=== PATIENT | female | born 1955 | race Caucasian/White ===

== ENCOUNTER 2019-03-20 21:53 | Emergency (ER) | payer BC ==
--- NOTE | 2019-03-20 22:04 | Emergency Department Record ---
History of Present Illness - General Chief Complaint: Altered Mental Status Stated Complaint: CONFUSION Time Seen by Provider: 03/20/19 21:58 Source: EMS Mode of Arrival: EMS Limitations: Altered mental status - History of Present Illness Initial Comments: 63 yo female presents to ED for evaluation of confusion for the past 4-5 weeks per EMS, patient's significant other reported difficulty with walking and being off balance for several weeks as well. Patient denies health problems other than HTN, denies use of anticoagulation medications. Patient denies any recent trauma or injury. MD Complaint: Altered mental status, Confusion Onset/Timin -: Month(s) Severity: Moderate Consistency: Constant Associated Symptoms: Denies other symptoms - Agustina Coma Scale Eye Response: (4) Open spontaneously Motor Response: (6) Obeys commands Verbal Response: (4) Confused conversation Agustina Total: 14 - Related Data Home Medications Medication Instructions Recorded Confirmed Last Taken Irbesartan 150 mg PO DAILY 03/20/19 03/20/19 03/20/19 Tiotropium [place] [Spiriva] 18 mcg INH DAILY 03/20/19 03/20/19 03/20/19 Umeclidinium Brm/Vilanterol Tr 1 puff DAILY 03/20/19 03/20/19 03/20/19 [Anoro Ellipta 62.5-25 Mcg INH] Allergies Allergy/AdvReac Type Severity Reaction Status Date / Time erythromycin base Allergy FLU LIKE Verified 03/20/19 23:44 SYMPTOMS Review of Systems ROS unobtainable: Due to mental status Physical Exam - General General Appearance: Alert, Cooperative, Mild distress, Other (Patient belives it is December of 1999, oriented to name) Limitations: Altered mental status - Head Head exam: Atraumatic, Normocephalic, Normal inspection Head exam detail: negative: Abrasion, Contusion, Wilder's sign, General tenderness, Hematoma, Laceration - Eye Eye exam: Normal appearance, PERRL. negative: Conjunctival injection, Periorbital swelling, Periorbital tenderness, Scleral icterus - ENT Ear exam: negative: Auricular hematoma, Auricular trauma Nasal Exam: negative: Active bleeding, Discharge, Dried blood, Foreign body Mouth exam: negative: Drooling, Laceration, Muffled voice, Tongue elevation - Neck Neck exam: Normal inspection. negative: Meningismus, Tenderness - Respiratory Respiratory exam: Normal lung sounds bilaterally. negative: Rales, Respiratory distress, Rhonchi, Stridor - Cardiovascular Cardiovascular Exam: Regular rate, Normal rhythm, Normal heart sounds - GI/Abdominal GI/Abdominal exam: Soft. negative: Rebound, Rigid, Tenderness - Rectal Rectal exam: Deferred - exam: Deferred - Extremities Extremities exam: Normal inspection. negative: Pedal edema, Tenderness - Back Back exam: Denies: CVA tenderness (R), CVA tenderness (L) - Neurological Neurological exam: Alert, Other (delayed with responses) - Psychiatric Psychiatric exam: Flat affect - Skin Skin exam: Normal color. negative: Abrasion Type of lesion: negative: abrasion Course - Reevaluation(s) Reevaluation #1: 03/20/19 22:08 Accu check 139 on arrival EKG: NSR 92 Normal axis, normal intervals No acute ST-T wave changes Reevaluation #2: 03/20/19 23:03 CT Brain: No acute process Reevaluation #3: 03/20/19 23:17 Laboratory studies were reviewed and appear grossly unremarkable with the exception of the following: Na 111 Cl 73 Hgb 10.2 Will initiate gentle hydration via banana bag in NS, will initiate transfer at this time for ICU admission. Reevaluation #4: 03/20/19 23:44 Case was discussed with Dr. Torres, will accept transfer to ICU. Medical Decision Making - Lab Data Result diagrams: 03/20/19 22:00 03/20/19 22:00 Critical Care Time Critical Care Time: Yes Total Critical Care Time: 60 Critical Care Time: Diagnosis and treatment for hypokalemia, exclusion of hyperammonia, ICH, Sepsis, or alcohol-induced alteration in mental status. Frequent reassessments, updating of both the patient and family members. Initiation and coordination of care with [facility]. Treatment for early Wernicke's encephalopathy. Disposition Disposition: Transfer Clinical Impression: Hyponatremia syndrome Anemia Qualifiers: Anemia type: unspecified type Qualified Code(s): D64.9 - Anemia, unspecified Disposition: Acute Care Hospital Transfer Transfer To: [facility] Reason For Transfer: Symptomatic Hyponatremia Accepting Physician: Melissa Time Discussed w/Accepting Physician: 23:25 Condition: (3) Guarded Forms: Patient Portal Access Time of Disposition: 23:25 Quality - Quality Measures Quality Measures: N/A - Blood Pressure Screening Does Patient Have Any of the Following: Active Dx of HTN Blood Pressure Classification: Pre-Hypertensive BP Reading Systolic Measurement: 154 Diastolic Measurement: 83 Screening for High Blood Pressure: Patient Exclusion, Hx of HTN [[id number]]
[2019-03-20 22:23] LABS: ABSOLUTE NEUTROPHIL COUNT 10.52; BASO % 0.2 % (0-6); EOS % 0.2 % (0-6); HEMATOCRIT 28.2 % (35.0-47.0); HEMOGLOBIN 10.2 gm/dl (11.6-16.0); LYMPH % 6.7 % (16-45); MEAN CELL VOLUME 90.7 fl (81-97); MEAN CORPUSCULAR HGB CONC 36.2 g/dl (32-36); MEAN PLATELET VOLUME 7.6 fl (7.4-10.4); MONO % 5.3 % (0-9); PLATELET COUNT 510 K/uL (130-400); RED BLOOD COUNT 3.11 M/uL (3.80-5.40); RED CELL DISTRIBUTION WIDTH 11.9 % (11.5-14.5)
[2019-03-20 22:27] LABS: MEAN CORPUSCULAR HEMOGLOBIN 32.7 pg (27-33)
[2019-03-20 22:38] LABS: BLOOD UREA NITROGEN 10 mg/dL (8-23); EST GLOMERULAR FILTRATION RATE 60 mL/min
[2019-03-20 22:39] LABS: PROTHROMBIN TIME (PATIENT) 9.8 SECONDS (9.5-12.1); TOTAL PROTEIN 6.5 g/dL (6.6-8.7)
[2019-03-20 22:41] LABS: GLUCOSE,RANDOM 122 mg/dL (74-109)
[2019-03-20 22:43] LABS: ALBUMIN 4.3 g/dL (4.0-5.0); ALT/SGPT 18 U/L (<33); AST/SGOT 31 U/L (10.0-35.0); PLATELET ESTIMATE INCREASED (NORMAL)
[2019-03-20 22:44] LABS: ACETAMINOPHEN < 5.0 ug/mL (10.0-30.0); ALKALINE PHOSPHATASE 114 U/L (35-104); SALICYLATE < 0.3 mg/dL (2.8-20)
[2019-03-20 22:54] LABS: THYROID STIMULATING HORMONE 1.28 uIU/mL (0.270-4.20)
[2019-03-20] MEDS ORDERED: MVI, ADULT NO.4 WITH VIT K 10 ML, THIAMINE HCL IV 100 MG in 0.9 % SODIUM CHLORIDE 1000M... IV SCH ×3 (23:00)
[2019-03-20 23:12] LABS: URINE APPEARANCE CLEAR; URINE BILIRUBIN NEGATIVE (NEGATIVE); URINE BLOOD NEGATIVE (NEGATIVE); URINE COLOR YELLOW; URINE GLUCOSE (UA) NEGATIVE (NEGATIVE); URINE KETONE NEGATIVE (NEGATIVE); URINE LEUKOCYTE ESTERASE NEGATIVE (NEGATIVE); URINE NITRITE NEGATIVE (NEGATIVE); URINE UROBILINOGEN 0.2 E.U./dL (0.20 - 1.00)
[2019-03-20 23:13] LABS: AMPHETAMINE SCREEN URINE NOT DETECTED; BARBITURATE SCREEN URINE NOT DETECTED; BENZODIAZEPINE SCREEN URINE NOT DETECTED; COCAINE SCREEN URINE NOT DETECTED; METHADONE SCREEN URINE NOT DETECTED; METHAMPHETAMINE SCREEN NOT DETECTED; OPIATE SCREEN URINE NOT DETECTED; OXYCODONE SCREEN URINE NOT DETECTED; PHENCYCLIDINE SCREEN URINE NOT DETECTED; PROPOXYPHENE SCREEN URINE NOT DETECTED; THC SCREEN URINE NOT DETECTED; TRICYCLIC ANTIDEPRESSANT SCRN NOT DETECTED
[2019-03-20 23:20] LABS: URINE BACTERIA FEW; URINE RBC 0 - 2 (NONE SEEN); URINE WBC 0 - 2 (0-2/hpf)
[2019-03-20 23:27] LABS: ALCOHOL < 0.010 g/dL (0-0.010)
--- NOTE | 2019-03-22 19:43 | CT SCAN REPORT ---
EXAM: CT SCAN HEAD WO CONTRAST HISTORY: ALTERED LEVEL OF CONSCIOUSNESS. TECHNIQUE: Routine noncontrast CT of the brain. COMPARISON: None. FINDINGS: The ventricles and subarachnoid spaces are normal in size for age. There is a subtle focus of hypodensity within the deep left parietal white matter measuring approximately 4.5 mm. There is questionable minimal additional periventricular and subcortical white matter lucency questioned in each cerebral hemisphere. No other area of abnormally increased or decreased attenuation is noted throughout the brain substance. No abnormal extraaxial fluid collection is seen. Mild to moderate atherosclerotic calcification of the distal right vertebral artery is present. Mild atherosclerotic calcification of the distal carotid arteries. The visualized paranasal sinuses and left mastoid air cells are clear. There is opacification of several inferior right mastoid air cells consistent with nonspecific effusion. The orbits as visualized are unremarkable. IMPRESSION: 1. NO CT EVIDENCE OF ACUTE MAJOR VESSEL INFARCT, INTRACRANIAL HEMORRHAGE, NOR MASS. 2. MINOR WHITE MATTER LUCENCIES, MOST PRONOUNCED IN THE DEEP LEFT PARIETAL WHITE MATTER. THESE ARE NONSPECIFIC BUT LIKELY AREAS OF CHRONIC MICROVASCULAR ISCHEMIA. 3. OPACIFICATION OF SEVERAL INFERIOR RIGHT MASTOID AIR CELLS CONSISTENT WITH NONSPECIFIC EFFUSION. JOB NUMBER: [id number] [facility]
== END 2019-03-21 00:43 | disposition short-term general hospital (02) ==
LOC: ER 21:53
DX: E51.2 Wernicke's encephalopathy (principal); E87.1 Hypo-osmolality and hyponatremia; E87.6 Hypokalemia; D64.9 Anemia, unspecified; R41.82 Altered mental status, unspecified; R26.2 Difficulty in walking, not elsewhere classified; I10 Essential (primary) hypertension; F17.210 Nicotine dependence, cigarettes, uncomplicated
CPT/HCPCS: 36416; 70450; 80053; 80305; 80320; 80329; 81001; 82140; 82948; 84443; 85027; 85610; 93005; 93010; 96365; 99291; J3411; J7030